=== PATIENT | female | born 1965 | race Caucasian/White ===

== ENCOUNTER 2021-10-23 08:17 | Day surgery (SDC) | payer BC ==
[~2021-10-23] VITALS: Ht 172.7 cm; Wt 82.7 kg
[~2021-10-23 08:17] MED LIST: CALCIUM 600 +1 EA11 PO; Imitrex100 MG PO; OMEP20ER PO; Prempro 0.3 MG/1 TAB PO
--- NOTE | 2021-10-23 08:50 | NUR ---
PT AMBULATES TO SDS C STEADY GAIT. Patient states colon prep results clear. Patient confirms NPO status and agrees with scheduled surgery. History, Chart, Medications and Allergies reviewed before start of procedure. Lungs clear T/O to Auscultation. Patient States Post-Procedure ride home has been arranged.
--- NOTE | 2021-10-23 09:11 | NUR ---
10/23/21 0911 Pao Banegas History, Chart, Medications and Allergies reviewed before start of procedure. Patient confirms NPO status and agrees with scheduled surgery. 3-LEAD EKG REVIEWED WITH PHYSICIAN PRIOR TO START OF PROCEDURE. MONITOR INTACT WITH CONTINUOUS PULSE OXIMETRY AND INTERMITTENT BP. PATIENT DETERMINED TO BE ASA APPROPRIATE FOR PROPOFOL SEDATION PRIOR TO START OF PROCEDURE BY .
--- NOTE | 2021-10-23 10:09 | NUR ---
Patient up to Ambulate independently. Gait steady. Discharge instructions reviewed with patient. Patient verbalizes understanding. Copy given to patient to take home. Patient States Post-Procedure ride home has been arranged. Discharged via wheelchair to private car for ride home. FAMILY PRESENT AT TIME OF DISCHARGE INSTRUCTIONS.
== END 2021-10-23 10:09 | disposition home or self-care (01) ==
LOC: ORSCMMR 08:17 → ORD 09:15 → ORSCMMR 10:09
PROVIDERS: Surgery
PROC: 0DBN8ZX Excision of Sigmoid Colon, Via Natural or Artificial Opening Endoscopic, Diagnostic (ICD-10-PCS; principal; 2021-10-23 09:15)
DX: Z12.11 Encounter for screening for malignant neoplasm of colon (principal); Z86.010 Personal history of colon polyps; D12.5 Benign neoplasm of sigmoid colon; E78.5 Hyperlipidemia, unspecified; K63.89 Other specified diseases of intestine; Z79.899 Other long term (current) drug therapy
CPT/HCPCS: 88305; J2704; J7120

== ENCOUNTER 2024-06-22 10:29 | Day surgery (SDC) | payer BC ==
[~2024-06-22] VITALS: Ht 172.7 cm; Wt 79.3 kg
[~2024-06-22 10:29] MED LIST changes: +Balanced Salt Epinephrine Irrigation Solution 500 mL IR SCH; +Lidocaine HCl/Pf 1% 5 ML VIAL XX SCH; +Moxifloxacin HCL 0.5 MG/0.1 ML 0.4MLSYR LEFTEYE SCH; +PHENYLEPHRINE\\TROPICAMIDE\\TETRACAINE OPHTHALMIC DILATING SOLN LEFTEYE PRN; +Povidone-Iodine 450 DROP/30 ML Solution LEFTEYE SCH; +Povidone-Iodine 450 DROP/30 ML Solution ONE; +Tetracaine HCl/Pf 0.5% Opth Soln 4 ml ONE
--- NOTE | 2024-06-22 10:58 | NUR ---
06/22/24 1058 Magdy Schmitz CALL LIGHT WITHIN REACH. TETRACAINE IN LEFT EYE AT 1055 AND PLEDGETT IN AT 1056
[2024-06-22] MEDS ORDERED: Midazolam HCl 1MG / ML 2ML Vial ONE (11:18)
[2024-06-22] MEDS ORDERED: DEXTROSE 5% IV STA (11:27)
[2024-06-22] MEDS ORDERED: CAFFEINE CITRATED IV STA (11:27)
[2024-06-22] MEDS ORDERED: CAFFEINE CITRATED IV ONE (11:30)
[2024-06-22] MEDS ORDERED: DEXTROSE 5% IV ONE (11:30)
[2024-06-22 12:14] VITALS: BP 122/76
== END 2024-06-22 12:04 | disposition home or self-care (01) ==
LOC: ORSCSDS 10:29
PROVIDERS: Student in an Organized Health Care Education/Training Program
PROC: 08RK3JZ Replacement of Left Lens with Synthetic Substitute, Percutaneous Approach (ICD-10-PCS; principal; 2024-06-22 12:00)
DX: H25.812 Combined forms of age-related cataract, left eye (principal); Z96.1 Presence of intraocular lens; H04.123 Dry eye syndrome of bilateral lacrimal glands; H52.202 Unspecified astigmatism, left eye; H35.89 Other specified retinal disorders; E78.5 Hyperlipidemia, unspecified; H35.30 Unspecified macular degeneration; K21.9 Gastro-esophageal reflux disease without esophagitis; Z79.899 Other long term (current) drug therapy
CPT/HCPCS: J0706; J2250; V2632

== ENCOUNTER → 2024-08-02 | Outpatient (CLI) | payer BC ==
[~2024-08-02] MED LIST changes: -Balanced Salt Epinephrine Irrigation Solution 500 mL IR SCH; -Lidocaine HCl/Pf 1% 5 ML VIAL XX SCH; -Moxifloxacin HCL 0.5 MG/0.1 ML 0.4MLSYR LEFTEYE SCH; -PHENYLEPHRINE\\TROPICAMIDE\\TETRACAINE OPHTHALMIC DILATING SOLN LEFTEYE PRN; -Povidone-Iodine 450 DROP/30 ML Solution LEFTEYE SCH; -Povidone-Iodine 450 DROP/30 ML Solution ONE; -Tetracaine HCl/Pf 0.5% Opth Soln 4 ml ONE
[2024-08-02 19:44] LABS: BASOPHILS ABSOLUTE AUTO 0.02 K/mm3 (0.00-0.23); BASOPHILS PERCENT AUTO 1 % (0-2); EOSINOPHILS ABSOLUTE AUTO 0.09 K/mm3 (0.00-0.68); EOSINOPHILS PERCENT AUTO 2 % (0-6); Hematocrit 43.8 % (33.0-51.0); Hemoglobin 14.5 g/dL (11.5-16.0); IMMATURE GRAN ABSOLUTE AUTO 0.01 K/mm3 (0.00-0.10); IMMATURE GRAN PERCENT AUTO 0 % (0-1); LYMPHOCYTES ABSOLUTE AUTO 1.42 K/mm3 (0.84-5.20); LYMPHOCYTES PERCENT AUTO 33 % (21-46); MONOCYTES ABSOLUTE AUTO 0.41 K/mm3 (0.16-1.47); MONOCYTES PERCENT AUTO 10 % (4-13); Mean Corpuscular HGB 28.3 pg (26.0-34.0); Mean Corpuscular HGB Conc 33.1 g/dL (31.5-36.5); Mean Corpuscular Volume 85 fL (80-100); Mean Platelet Volume 11.6 fL (9.1-12.4); NEUTROPHILS ABSOLUTE AUTO 2.31 K/mm3 (1.96-9.15); NEUTROPHILS PERCENT AUTO 54 % (41-73); Platelet Count 110 K/mm3 (150-400); RDW Coefficient Variation 13.2 % (11.7-14.2); RDW Standard Deviation 40.7 fL (35.1-46.3); Red Blood Cell Count 5.13 M/mm3 (3.80-5.20); White Blood Cell Count 4.26 K/mm3 (4.00-11.30)
[2024-08-02 20:29] LABS: Percent Saturation 16.8 % (15.0-50.0); Thyroid Stimulating Hormone 0.99 uIU/mL (0.360-4.800)
[2024-08-02 21:09] LABS: Albumin/Globulin Ratio 1.1 (0.8-1.8); Bilirubin, Total 0.7 mg/dL (0.1-1.0); Bun/Creatinine Ratio 20.6 (12.0-20.0); Calcium, Blood 9.2 mg/dL (8.5-10.1); Creatinine, Blood 0.78 mg/dL (0.40-1.00); Globulin, Blood 3.7 g/dL (2.2-4.0); Potassium, Blood 4.5 mmol/L (3.5-5.5); Total Protein, Blood 7.7 g/dL (6.4-8.2)
[2024-08-04 16:11] LABS: IMMUNOGLOBULIN A 169 mg/dL (68-408); IMMUNOGLOBULIN G 1031 mg/dL (768-1632); IMMUNOGLOBULIN M 117 mg/dL (35-263)
[2024-08-05 20:00] LABS: ANA PATTERN Homogeneous; ANTINUCLEAR AB (ANA),HEP-2,IGG Detected (<1:80)
[2024-08-07 10:08] LABS: ALBUMIN 4.64 g/dL (3.75-5.01); ALPHA 2 GLOBULIN 0.71 g/dL (0.48-1.05); BETA GLOBULIN 0.77 g/dL (0.48-1.10); GAMMA 1.08 g/dL (0.62-1.51); IMMUNOFIXATION IFE Done; TOTAL PROTEIN, SERUM 7.5 g/dL (6.3-8.2)
== END ==
LOC: LAB SHORT 18:04 → LAB 18:04
PROVIDERS: Registered Nurse Oncology
DX: D69.6 Thrombocytopenia, unspecified (principal)
CPT/HCPCS: 80053; 82306; 82607; 82728; 82746; 82784; 83540; 83550; 83615; 84155; 84165; 84443; 85025; 85060; 86039; 86334